=== PATIENT | male | born 1945 | race Caucasian/White ===

== ENCOUNTER 2017-01-07 20:09 | Inpatient (IN) ==
[2017-01-07] MEDS ORDERED: FUROSEMIDE 40 MG/4 ML VIAL IV STA (21:53)
[2017-01-07] MEDS ORDERED: MORPHINE 2 MG/1 ML SYRINGE IV STA (21:53)
[2017-01-07] MEDS ORDERED: ASPIRIN 325 MG TABLET PO STA (21:53)
[2017-01-07] MEDS ORDERED: NITROGLYCERIN 2% OINT 1 INCH/GM PACK TOP STA (21:53)
[2017-01-07] MEDS ORDERED: ONDANSETRON 4 MG/2 ML VIAL IV STA (21:53)
[2017-01-07 21:58] LABS: Basophils % 0.2 % (0.0-0.8); Eosinophils # 0.1 10*3/uL (0.0-0.87); Eosinophils % 0.6 % (0.00-10.9); Hematocrit 42.3 VOL% (42.0-52.0); Hemoglobin 13.8 GM/DL (14.0-18.0); Immature Granulocytes % 0.3 %; Immature Granulocytes Absolute 0.04 #; Lymphocytes # 2.3 10*3/uL (1.4-4.0); Lymphocytes % 18.9 % (21.2-54.2); Mean Corpuscular HGB Conc 32.6 GM/DL (32-36); Mean Corpuscular Hemoglobin 26 PG (27-34); Mean Platelet Volume 11.1 FL (9.6-12.0); Neutrophils # 8.7 10*3/uL (1.4-7.4); Platelet Count 236 T/CUMM (130-400); Red Blood Count 5.29 MC/CUMM (3.8-5.5); Red Cell Distribution Width 15.4 % (9.3-17.3); White Blood Count 12.1 T/CUMM (4-12)
[2017-01-07 22:03] LABS: INR 1.2; PT Patient Result 12.3 SECS
[2017-01-07 22:11] LABS: Albumin 3.5 G/DL (3.4-5.0); Bilirubin,Total 1.1 MG/DL (0.2-1.0); Calcium 9.1 MG/DL (8.5-10.1); Magnesium 2.2 MG/DL (1.8-2.4); Osmolality,Calculated 274.7 MOS/KG (273-304); Potassium 3.7 MMOL/L (3.5-5.1); Total Protein 7.5 G/DL (6.4-8.3)
[2017-01-07] MEDS ORDERED: MORPHINE 2 MG/1 ML SYRINGE ONE (22:14)
[2017-01-07] MEDS ORDERED: ASPIRIN 325 MG TABLET ONE (22:14)
[2017-01-07] MEDS ORDERED: FUROSEMIDE 40 MG/4 ML VIAL ONE (22:14)
[2017-01-07] MEDS ORDERED: NITROGLYCERIN 2% OINT 1 INCH/GM PACK TOP ONE (22:14)
[2017-01-07] MEDS ORDERED: ONDANSETRON 4 MG/2 ML VIAL ONE (22:15)
--- NOTE | 2017-01-07 22:22 | Emergency Department Note ---
Radhames Epperson Rolonda, am scribing for, and in the presence of, Cooper Green MD 22:09. Norma Epperson Charles R, MD, personally performed the services described in this documentation, ascribed by Kana Ricci in my presence, and it is both accurate and complete . Arrival - Arrival Chief Complaint: Chest Pain Stated Complaint: CHEST PAIN-SOB ED Nursing Triage Note: C/O Epigastric pain. Onset 1200 worsening around 1500. Pt was admitted at [facility] yesterday, but states that he signed out AMA due to Dr. Meadows being his doctor and not going to [facility]. +nausea +belching. pt reports that his cardiac enzymes went up during the admissions that is why he chose to come here to see Dr. Meadows Mode of Arrival: Ambulatory Limitations: No Limitations Source: Patient, Old Records Reviewed, RN Notes Reviewed Time Seen by Provider: 01/07/17 21:34 - History of Present Illness HPI Narrative: Pt is a 71 y/o male who presents to the ED for further evaluation of CP with an onset of yesterday. Pt has a PMHx of Defibrillator, DM, and AFib. Pt states that he was seen at [facility] where blood work was done showing that his enzyme levels were elevated. He states that he thought the CP was his acid reflux. Pt states that the CP occurs with and without exertion. Pt states that he had associated sxs of SOB, diaphoresis, and nausea. No other complaint/pain in ED. Onset (ago): hour(s) Consistency: constant Severity: mild, moderate Severity scale (1-10): 4 Allergies/Adverse Reactions: Allergies Allergy/AdvReac Type Severity Reaction Status Date / Time No Known Allergies Allergy Verified 09/25/14 11:21 Home Medications: Home Medications Medication Instructions Recorded Confirmed Type Aspirin [Ecotrin] 81 mg PO DAILY 05/28/15 05/28/15 History Carbidopa/Levodopa 25-100 [Sinemet 1 tablet PO DAILY 05/28/15 05/28/15 History 25-100] Dabigatran [Pradaxa] 150 mg PO BID 05/28/15 05/28/15 History Digoxin Tab [Lanoxin Tab] 0.25 mg PO DAILY@1300 05/28/15 05/28/15 History Esomeprazole Magnesium [Nexium] 40 mg PO DAILY 05/28/15 05/28/15 History Nebivolol [Bystolic] 20 mg PO DAILY 05/28/15 05/28/15 History PARoxetine HCl [Paroxetine HCl] 20 mg PO DAILY 05/28/15 05/28/15 History Potassium Chloride Cap/Tab [K Dur] 40 meq PO DAILY 05/28/15 05/28/15 History Quinapril [Accupril] 40 mg PO DAILY 05/28/15 05/28/15 History sitaGLIPtin [Januvia] 100 mg PO DAILY 05/28/15 05/28/15 History Furosemide Tab [Lasix Tab] 80 mg PO BID #60 05/31/15 05/28/15 Rx Spironolactone [Aldactone] 50 mg PO DAILY #30 tablet 05/31/15 Rx cloNIDine HCl [Clonidine HCl] 0.3 mg PO BID #60 tablet 05/31/15 Rx Review of System - Review of System 12 point system: reviewed and no additional remarkable complaints except as stated - Review of System Constitutional: Present: diaphoresis, weakness Respiratory: Present: respiratory distress (SOB). Absent: cough Cardiovascular: Present: chest pain Gastrointestinal: Present: nausea Genitourinary male: Absent: dysuria Musculoskeletal: Absent: arm pain Skin: Absent: rash Neurological: Absent: headache Psychiatric: Absent: anxiety Endocrine: Absent: cold intolerance Hematological/Lymphatic: Absent: easy bleeding Allergic/Immunologic: Absent: facial swelling Medical,Surgical,& Family Hx - Medical History Cardio: History of: Cardiac Dysrhythmia (AFIB), Hypertension, Pacemaker Endocrine: History of: Diabetes Mellitus (NIDDM) Gastrointestinal: History of: GERD - Family History Family History: Reports;: Family Cancer (FATHER- COLON CA), Family Diabetes ( MOTHER AND FATHER), Family Hypertension (GRANDMOTHER) - Social History Smoking Status: Never smoker Frequency of Alcohol Use: None Type of Drug Use: None Exam Vital Signs: Vital Signs Temperature 98.3 F 01/07/17 20:18 Pulse Rate 79 01/07/17 20:18 Respiratory Rate 20 01/07/17 20:18 Blood Pressure 144/90 01/07/17 20:18 O2 Sat by Pulse Oximetry 95 01/07/17 20:18 - General General appearance: alert, in no apparent distress - Head Head exam: Present: atraumatic, normocephalic - Eye Eye exam: Present: PERRL, EOMI - ENT ENT exam: Present: mucous membranes moist. Absent: mucous membranes dry - Neck Neck exam: Present: full ROM. Absent: tenderness - Chest Chest inspection: Present: symmetric chest wall rise. Absent: tenderness - Respiratory Respiratory exam: Present: rales (bilateral at base). Absent: normal lung sounds bilaterally - Cardiovascular Cardiovascular exam: Present: regular rate, normal rhythm, normal heart sounds, other (unstable angina). Absent: bradycardia - Abdominal Exam Abdominal exam: Present: soft, normal bowel sounds. Absent: tenderness - Extremities Exam Extremities exam: Present: full ROM, pedal edema (+2). Absent: tenderness - Back Exam Back exam: Present: full ROM. Absent: tenderness - Neurological Exam Neurological exam: Present: alert, oriented X3, CN II-XII intact - Psychiatric Psychiatric exam: Present: normal affect, normal mood - Skin Skin exam: Present: warm, dry, intact, normal color. Absent: rash Course - Consultations Consultation #1: Dr. Andino will admit patient Time: 22:55 Results - Labs CBC & BMP: 01/07/17 20:36 01/07/17 20:36 Lab Results: I have reviewed the patients labs Labs: Laboratory Tests 01/07/17 01/07/17 01/07/17 20:36 20:36 20:36 WBC 12.1 H RBC 5.29 Hgb 13.8 L Hct 42.3 MCV 80.0 L MCH 26 L Lymph % (Auto) 18.9 L Neut # (Auto) 8.7 H [place] # (Auto) 1.0 H INR 1.2 PT Patient/Control Mix 12.3 Sodium 138 Potassium 3.7 Chloride 102 Carbon Dioxide 31 BUN 10 GFR Calculation 122 Glucose 117 H Total Bilirubin 1.10 H AST 19 Troponin I Globulin 4.0 H Albumin/Globulin Ratio 0.8 L 01/07/17 20:36 WBC RBC Hgb Hct MCV MCH Lymph % (Auto) Neut # (Auto) [place] # (Auto) INR PT Patient/Control Mix Sodium Potassium Chloride Carbon Dioxide BUN GFR Calculation Glucose Total Bilirubin AST Troponin I 0.055 H Globulin Albumin/Globulin Ratio Disposition Clinical Impression: Chest pain, Cardiomyopathy, CHF (congestive heart failure), NYHA class III, Pacemaker, Atrial fibrillation Case discussed with: patient, patient's family Disposition: Still a Patient Condition: Stable Time of Disposition: 22:55
[2017-01-07] MEDS ORDERED: ENOXAPARIN 100 MG/ML SYRINGE SUBCUT STA (22:29)
[2017-01-07] MEDS ORDERED: ENOXAPARIN 120 MG/0.8 ML SYRINGE SUBCUT ONE (23:02)
[2017-01-07 23:36] LABS: Elliptocytes 2+; Platelet Estimate Normal
[2017-01-08] MEDS ORDERED: SODIUM CHLORIDE 0.9% 1,000 ML IV SCH (00:32)
[2017-01-08] MEDS ORDERED: POTASSIUM CHLORIDE 20 MEQ TABLET PO PRN (00:32)
[2017-01-08] MEDS ORDERED: ONDANSETRON 4 MG/2 ML VIAL IV PRN (00:32)
[2017-01-08] MEDS ORDERED: DEXTROSE 50% 25 GM/50 ML VIAL IV PRN (00:32)
[2017-01-08] MEDS ORDERED: MAGNESIUM SULF RIDER 2 GM in PREMIX 1 EACH IV PRN (00:32)
[2017-01-08] MEDS ORDERED: ALBUTEROL/IPRATROPIUM 3 ML NEB RESP TX PRN (00:32)
[2017-01-08] MEDS ORDERED: MAGNESIUM SULF RIDER 4 GM in PREMIX 1 EACH IV PRN (00:32)
[2017-01-08] MEDS ORDERED: MORPHINE 2 MG/1 ML SYRINGE IV PRN (00:32)
[2017-01-08] MEDS ORDERED: GLUCAGON 1 MG VIAL IM PRN (00:32)
[2017-01-08] MEDS: NITROGLYCERIN 2% OINT 1 INCH/GM PACK TOP SCH ×4 (00:37→17:41)
[2017-01-08 02:16] LABS: Basophils % 0.2 % (0.0-0.8); Eosinophils # 0.1 10*3/uL (0.0-0.87); Eosinophils % 1.4 % (0.00-10.9); Hematocrit 39.6 VOL% (42.0-52.0); Hemoglobin 13.2 GM/DL (14.0-18.0); Immature Granulocytes % 0.2 %; Immature Granulocytes Absolute 0.02 #; Lymphocytes # 2.1 10*3/uL (1.4-4.0); Lymphocytes % 21.2 % (21.2-54.2); Mean Corpuscular HGB Conc 33.3 GM/DL (32-36); Mean Corpuscular Hemoglobin 27 PG (27-34); Mean Corpuscular Volume 79.4 FL (87-102); Mean Platelet Volume 10.6 FL (9.6-12.0); Monocytes % 9.9 % (1.7-12.7); Neutrophils # 6.7 10*3/uL (1.4-7.4); Neutrophils % 67.1 % (38.7-73.9); Platelet Count 236 T/CUMM (130-400); Red Blood Count 4.99 MC/CUMM (3.8-5.5); Red Cell Distribution Width 15.5 % (9.3-17.3)
[2017-01-08 02:46] LABS: Calcium 8.8 MG/DL (8.5-10.1)
[2017-01-08 02:47] LABS: Albumin 3.3 G/DL (3.4-5.0); Magnesium 2.4 MG/DL (1.8-2.4); Osmolality,Calculated 277.5 MOS/KG (273-304); Potassium 3.5 MMOL/L (3.5-5.1); Risk Ratio 2.66; Total Protein 6.7 G/DL (6.4-8.3)
--- NOTE | 2017-01-08 07:35 | Order Completion Report ---
See report scanned to EMR
[2017-01-08] MEDS: INSULIN REGULAR 100 UNIT/ML SUBCUT SCH ×4 (08:27→21:19)
--- NOTE | 2017-01-08 08:31 | XRay Report ---
History: Chest pain Date: 01/07/2017 Study: Chest x-ray AP portable Comparison exam: June 01, 2015 There is continued cardiomegaly. The mediastinal contours are unchanged. The pulmonary vasculature is not engorged. The lungs and pleural spaces are clear. A left subclavian multiple lead pacemaker/defibrillator device is stable in appearance. Osseous structures are similar. Impression: No definite acute process. Stable cardiomegaly. No adverse interval change compared to the previous study PROCEDURE INTERPRETED AT [facility] DEPARTMENT OF RADIOLOGY Final Report Signed by: Dr. Ena Singh
--- NOTE | 2017-01-08 08:43 | Cardiology History & Physical ---
Assessment and Plan - Time spent with patient Time spent with patient: Greater than 30 minutes (1) Epigastric pain Status: Acute Assessment and plan: SEE PLAN OF CARE LISTED BELOW. Current Visit: Yes (2) Elevated troponin Status: Acute Assessment and plan: SEE PLAN OF CARE LISTED BELOW. Current Visit: Yes (3) AICD (automatic cardioverter/defibrillator) present Status: Chronic Assessment and plan: SEE PLAN OF CARE LISTED BELOW. Current Visit: No (4) GERD (gastroesophageal reflux disease) Status: Chronic Assessment and plan: SEE PLAN OF CARE LISTED BELOW. Current Visit: Yes (5) Hypertension Status: Chronic Assessment and plan: SEE PLAN OF CARE LISTED BELOW. Current Visit: Yes (6) Chronic a-fib Status: Chronic Assessment and plan: SEE PLAN OF CARE LISTED BELOW. Current Visit: Yes (7) Diabetes Status: Chronic Assessment and plan: SEE PLAN OF CARE LISTED BELOW. Current Visit: No Qualifiers: Diabetes mellitus type: type 2 Diabetes mellitus complication status: with skin complications Diabetes mellitus complication detail: with foot ulcer (8) Chronic anticoagulation Status: Chronic Assessment and plan: SEE PLAN OF CARE LISTED BELOW. Current Visit: Yes (9) Nonischemic cardiomyopathy Status: Chronic Assessment and plan: SEE PLAN OF CARE LISTED BELOW. Current Visit: Yes (10) Shortness of breath Status: Acute Assessment and plan: SEE PLAN OF CARE LISTED BELOW. Current Visit: Yes History of Present Illness Chief complaint: Epigastric pain, shortness of breath History of present illness: PLUMBER HELPER: Dr. Meadows Mr. Corbett is a 71 year old male without known history of coronary artery disease, routinely followed by Dr. Meadows. Cardiac risk factors include: Diabetes, hypertension, advanced age, obesity and sedentary lifestyle. Lifetime non-smoker. No significant family history of CAD. Past medical history includes: Chronic atrial fibrillation (chronically anticoagulated with Pradaxa), nonischemic cardiomyopathy, obstructive sleep apnea and GERD. Patient 's most recent heart catheterization was performed March 2008. 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 EF at that time was 35-40%. Echocardiogram performed July 2016 revealed LVEF 30%. Mild to moderate LVH. Patient was last seen in the cardiology clinic per Dr. Cassandra Meadows July 2016. At that time, he was doing well without cardiovascular complaints. Patient presented to [facility] January 07, 2017 with complaints of epigastric pain. He presented to [facility] yesterday for further evaluation. At that facility, his troponin was noted to be slightly bumped per his report. He is unaware of exactly what this number was. I have requested these records. At that point, he told them that his wireless development manager was at [facility] and he wanted to be worked up here. He presented to our facility January 07, 2017 with the same complaints of epigastric pain. He reports that on Wednesday he felt bad all day. He was weak and short of breath. He then developed epigastric pain approximately 2 hours after eating lunch yesterday. He denies any associated chest pain, heaviness or tightness. Confirms shortness of breath and nausea. Denies diaphoresis. Denies heart racing/ palpitations. Confirms orthopnea over the last several nights. No radiation. He reports that his epigastric pain continued and lasted several hours. At that point, he felt that he should be further evaluated in the emergency department. At [facility], he reports that he received IV Protonix which then relieved his pain. It has not recurred since that time. He reports that he has been very sedentary over the last several months as he has had surgery recently and has not been able to do much. He denies any exertional chest pain. Reports that his breathing has been short at times on exertion. He has felt weak and fatigued. He has associated his symptomology with reflux. He reports that he has just switched his medications around. He has quit taken Nexium and switch to Prilosec. Denies any dark tarry stools or bright red blood per rectum. He reports that he does not think that his reflux is well controlled with the Prilosec. Patient has been admitted under cardiology's service. Housed on the telemetry unit. Patient seen and examined on the telemetry unit. He is currently without complaints of epigastric pain, chest pain, heaviness or tightness. Denies shortness of breath. Upon entering the room, patient was lying flat without any specific complaints or orthopnea. He reports that he has diuresed significantly since yesterday. As he was also diuresed at [place]. We will monitor patient's renal function closely and observe for overdiuresis. Trivial troponin. No overt rise or fall. Flat in nature. EKG nondiagnostic, reveals ventricular pacing. Previous catheterization in 2007 revealed nonobstructive CAD. No significant disease was noted until the very distal portion of the LAD. Mild disease in the very terminal portion, LAD at that point is less than 1 mm. Given the fact that patient's pain was relieved with PPI, suspicion of ACS is low. I discussed this case with Dr. Ornelas and we will interrogate the patient's AICD device as well as repeat echocardiogram. If this looks ok, patient may be eligible for discharge later this afternoon with close follow-up with his primary wireless development manager. IMPRESSION AND PLAN: 1. EPIGASTRIC PAIN - Relieved with Protonix. This will be continued. Suspect GERD. Historically, this is been well controlled. However, patient just recently switched from Nexium to Prilosec and reports worsening epigastric pain and belching after meals. 2. SHORTNESS OF BREATH - BNP slightly elevated at 541. Suspect acute on chronic CHF secondary to systolic dysfunction. We will diurese patient with IV Lasix. Will monitor renal function closely. Obtain echocardiogram. Monitor strict i's and O's and daily weights. 3. NONISCHEMIC CARDIOMYOPATHY - Deemed nonischemic cardiomyopathy 2007 per [facility]. EF 30% July 2016. Will obtain repeat echocardiogram to reassess EF. Continue beta-blockade, ISAAC inhibitor, diuretics and digoxin. Further recommendations to follow after echocardiogram has been reviewed. 4. HYPERTENSION - Well controlled. Will continue patient's home medication regimen and monitor blood pressure, adjust accordingly. 5. TRIVIAL TROPONIN - Trivial troponin. No overt rise or fall. Flat in nature. EKG nondiagnostic, reveals ventricular pacing. Without complaints of chest pain. Only epigastric pain. Previous catheterization in 2007 revealed nonobstructive CAD. No significant disease was noted into the very distal portion of the LAD. Mild disease in the very terminal portion, LAD at that point is less than 1 mm. Given the fact that patient's pain was relieved with PPI, suspicion of ACS is low. We will interrogate the patient's AICD device as well as repeat echocardiogram. If this looks ok patient may be eligible for discharge later this afternoon with close follow-up with his primary wireless development manager. 6. CHRONIC ATRIAL FIBRILLATION - Currently a paced rhythm. Continue beta- blockade and digoxin. Continue Pradaxa. 7. CHRONIC ANTICOAGULATION - Chronically anticoagulated with Pradaxa for chronic atrial fibrillation. Continue Pradaxa. No evidence of overt bleeding. 8. GERD - Continue PPI. 9. STATUS POST AICD - Chronic, stable. 10. DIABETES - Sliding scale insulin. Accu-Cheks before meals and at bedtime. Home Medications Medication Instructions Recorded Confirmed Type Aspirin [Ecotrin] 81 mg PO DAILY 05/28/15 05/28/15 History Carbidopa/Levodopa 25-100 [Sinemet 1 tablet PO DAILY 05/28/15 05/28/15 History 25-100] Dabigatran [Pradaxa] 150 mg PO BID 05/28/15 05/28/15 History Digoxin Tab [Lanoxin Tab] 0.25 mg PO DAILY@1300 05/28/15 05/28/15 History Esomeprazole Magnesium [Nexium] 40 mg PO DAILY 05/28/15 05/28/15 History Nebivolol [Bystolic] 20 mg PO DAILY 05/28/15 05/28/15 History PARoxetine HCl [Paroxetine HCl] 20 mg PO DAILY 05/28/15 05/28/15 History Potassium Chloride Cap/Tab [K Dur] 40 meq PO DAILY 05/28/15 05/28/15 History Quinapril [Accupril] 40 mg PO DAILY 05/28/15 05/28/15 History sitaGLIPtin [Januvia] 100 mg PO DAILY 05/28/15 05/28/15 History Furosemide Tab [Lasix Tab] 80 mg PO BID #60 05/31/15 05/28/15 Rx Spironolactone [Aldactone] 50 mg PO DAILY #30 tablet 05/31/15 Rx cloNIDine HCl [Clonidine HCl] 0.3 mg PO BID #60 tablet 05/31/15 Rx Allergies Allergy/AdvReac Type Severity Reaction Status Date / Time Terazosin [From Hytrin] Allergy Unknown Verified 01/08/17 02:21 - Constitutional Constitutional: Present: as per HPI, fatigue, headache(s), lethargy, malaise, weakness. Absent: chills, fever(s), frequent falls, weight gain, weight loss - Cardiovascular Cardiovascular: Present: as per HPI, diaphoresis, dyspnea, dyspnea on exertion, orthopnea. Absent: chest pain at rest, chest pain with activity, claudication, edema, radiating jaw, neck or arm pain, lightheadedness, palpitations, PND - Respiratory Respiratory: Present: as per HPI, dyspnea, dyspnea on exertion. Absent: cough, hemoptysis, wheezing, snoring, pain on inspiration, change in phlegm color - Gastrointestinal Gastrointestinal: Present: as per HPI, abdominal pain, dyspepsia, heartburn, nausea. Absent: change in bowel habits, coffee ground emesis, hematemesis, hematochezia, melena, vomiting - Neurological Neurological: Present: as per HPI. Absent: abnormal gait, abnormal speech, behavioral changes, dizziness, frequent falls, syncope - Psychiatric Psychiatric: Present: as per HPI. Absent: anxiety, panic attacks - Hematologic/Lymphatic Hematologic/Lymphatic: Present: as per HPI. Absent: easy bleeding, easy bruising Medical,Surgical,& Family Hx - Medical History Cardio: History of: Cardiac Dysrhythmia (AFIB), CHF, Hypertension, Pacemaker, Cardiovascular Problems (Nonischemic cardiomyopathy) Endocrine: History of: Diabetes Mellitus (NIDDM) Gastrointestinal: History of: GERD Musculoskeletal: History of: Back/Neck Problems - Surgical History Cardiac Surgeries: Sugical HX of: Cardiac Catheterization Thoracic Surgeries: Surgical HX of;: Lobectomy - Family History Family History: Reports;: Family Cancer (FATHER- COLON CA), Family Diabetes ( MOTHER AND FATHER), Family Hypertension (GRANDMOTHER) - Social History Smoking Status: Never smoker Frequency of Alcohol Use: None Type of Drug Use: None Marital Status: Lives With:: Spouse Functional capacity: independent ambulation Cardiology Physical Exam - Constitutional Vitals: Vital Signs Temp Pulse Resp BP Pulse Ox 97.3 F L 78 18 141/80 90 L 01/08/17 04:00 01/08/17 07:55 01/08/17 05:56 01/08/17 04:00 01/08/17 04:00 Intake and Output 01/07/17 01/08/17 01/08/17 22:59 06:59 14:59 Output Total 250 / 250 Balance -250 / -250 Output: Urine 250 / 250 Other: Voiding Method Urinal Weight 320 lb 334 lb Exam: General: Appears well with no apparent distress. Pleasant and cooperative. Appears comfortable. HEENT: PERRL, normocephalic, atraumatic. Mucous membranes moist. No jaundice noted. Conjunctiva moist and clear, sclerae anicteric Neck: No JVD/HJR, no thyromegaly or lymphadenopathy noted. No carotid bruit appreciated Cardiac: S1 and S2. No murmur rub or gallop. Lungs: Clear to auscultation without accessory muscle use to assist the respiratory pattern. Not requiring oxygen. Abdomen: Soft, bowel sounds normoactive. Nontender and nondistended. No abdominal bruit or thrill noted. No masses noted. Extremities: No clubbing, cyanosis noted. No edema noted. Upper extremity pulses 2+. Lower extremity pulses 2+. Capillary refill less than 3 seconds. Skin: No unusual lesions or rashes. No skin breakdown appreciated. Neuro: Awake, alert and oriented 3. Moves all extremities well without hemiparesis or paralysis. No essential tremor is appreciated. Result/EKG - Labs CBC & BMP: 01/08/17 02:00 01/08/17 02:03 Lab Results: I have reviewed the past 24 hour labs Labs: Laboratory Results - last 24 hr 01/07/17 01/07/17 01/07/17 20:36 20:36 20:36 WBC RBC Hgb Hct MCV MCH MCHC RDW Plt Count MPV Neut % (Auto) Lymph % (Auto) [place] % (Auto) Eos % (Auto) Baso % (Auto) Neut # (Auto) Lymph # (Auto) [place] # (Auto) Eos # (Auto) Baso # (Auto) Immature Gran % Nucleated RBC % Immature Gran # Nucleated RBCs # Platelet Estimate Immature Plt Fraction Anisocytosis Elliptocytes INR 1.2 PT Patient/Control Mix 12.3 Sodium 138 Potassium 3.7 Chloride 102 Carbon Dioxide 31 Anion Gap 8.7 BUN 10 Creatinine 1.00 GFR Calculation 122 BUN/Creatinine Ratio 10.00 Glucose 117 H Calculated Osmolality 274.7 Calcium 9.1 Magnesium 2.2 Total Bilirubin 1.10 H AST 19 ALT 19 Alkaline Phosphatase 97 Troponin I B-Natriuretic Peptide 400 H Total Protein 7.5 Albumin 3.5 Globulin 4.0 H Albumin/Globulin Ratio 0.8 L Triglycerides Cholesterol LDL Cholesterol VLDL Cholesterol HDL Cholesterol Heart Disease Risk Ratio Lipase 102.0 Digoxin 01/07/17 01/07/17 01/07/17 20:36 20:36 21:36 WBC 12.1 H RBC 5.29 Hgb 13.8 L Hct 42.3 MCV 80.0 L MCH 26 L MCHC 32.6 RDW 15.4 Plt Count 236 MPV 11.1 Neut % (Auto) 72.0 Lymph % (Auto) 18.9 L [place] % (Auto) 8.0 Eos % (Auto) 0.6 Baso % (Auto) 0.2 Neut # (Auto) 8.7 H Lymph # (Auto) 2.3 [place] # (Auto) 1.0 H Eos # (Auto) 0.1 Baso # (Auto) 0.0 Immature Gran % 0.3 Nucleated RBC % 0.0 Immature Gran # 0.04 Nucleated RBCs # 0.00 Platelet Estimate Normal Immature Plt Fraction 0.0 Anisocytosis Elliptocytes 2+ INR PT Patient/Control Mix Sodium Potassium Chloride Carbon Dioxide Anion Gap BUN Creatinine GFR Calculation BUN/Creatinine Ratio Glucose Calculated Osmolality Calcium Magnesium Total Bilirubin AST ALT Alkaline Phosphatase Troponin I 0.055 H B-Natriuretic Peptide Total Protein Albumin Globulin Albumin/Globulin Ratio Triglycerides Cholesterol LDL Cholesterol VLDL Cholesterol HDL Cholesterol Heart Disease Risk Ratio Lipase Digoxin 0.40 L 01/08/17 01/08/17 01/08/17 02:00 02:03 02:03 WBC 10.0 RBC 4.99 Hgb 13.2 L Hct 39.6 L MCV 79.4 L MCH 27 MCHC 33.3 RDW 15.5 Plt Count 236 MPV 10.6 Neut % (Auto) 67.1 Lymph % (Auto) 21.2 [place] % (Auto) 9.9 Eos % (Auto) 1.4 Baso % (Auto) 0.2 Neut # (Auto) 6.7 Lymph # (Auto) 2.1 [place] # (Auto) 1.0 H Eos # (Auto) 0.1 Baso # (Auto) 0.0 Immature Gran % 0.2 Nucleated RBC % 0.0 Immature Gran # 0.02 Nucleated RBCs # 0.00 Platelet Estimate Immature Plt Fraction 0.0 Anisocytosis Elliptocytes INR PT Patient/Control Mix Sodium 139 Potassium 3.5 Chloride 103 Carbon Dioxide 31 Anion Gap 8.5 BUN 12 Creatinine 1.00 GFR Calculation 124 BUN/Creatinine Ratio 12.00 Glucose 122 H Calculated Osmolality 277.5 Calcium 8.8 Magnesium Total Bilirubin 1.00 AST 15 ALT 19 Alkaline Phosphatase 93 Troponin I 0.051 H B-Natriuretic Peptide Total Protein 6.7 Albumin 3.3 L Globulin 3.4 Albumin/Globulin Ratio 0.9 L Triglycerides Cholesterol LDL Cholesterol VLDL Cholesterol HDL Cholesterol Heart Disease Risk Ratio Lipase Digoxin 01/08/17 01/08/17 01/08/17 02:03 02:03 03:49 WBC RBC Hgb Hct MCV MCH MCHC RDW Plt Count MPV Neut % (Auto) Lymph % (Auto) [place] % (Auto) Eos % (Auto) Baso % (Auto) Neut # (Auto) Lymph # (Auto) [place] # (Auto) Eos # (Auto) Baso # (Auto) Immature Gran % Nucleated RBC % Immature Gran # Nucleated RBCs # Platelet Estimate Immature Plt Fraction Anisocytosis Elliptocytes INR PT Patient/Control Mix Sodium Potassium Chloride Carbon Dioxide Anion Gap BUN Creatinine GFR Calculation BUN/Creatinine Ratio Glucose Calculated Osmolality Calcium Magnesium 2.4 Total Bilirubin AST ALT Alkaline Phosphatase Troponin I 0.046 H B-Natriuretic Peptide 541 H Total Protein Albumin Globulin Albumin/Globulin Ratio Triglycerides 110 Cholesterol 101 LDL Cholesterol 55.0 VLDL Cholesterol 22.0 HDL Cholesterol 38 L Heart Disease Risk Ratio 2.66 Lipase Digoxin
[2017-01-08] MEDS ORDERED: INFLUENZA VIRUS VACCINE 0.5 ML SYRINGE IM ONE (09:00)
[2017-01-08] MEDS: FUROSEMIDE 20 MG/2 ML VIAL IV SCH ×2 (09:29→16:39)
--- NOTE | 2017-01-08 09:34 | XRay Report ---
History: Shortness of breath Date: 01/08/2017 Study: Chest x-ray PA and lateral Comparison exam: 01/07/2017 There is stable mild cardiomegaly. The mediastinal contours are unchanged. The pulmonary vasculature is not engorged. There is no pleural effusion. The lungs are generally clear. A left subclavian multiple lead pacemaker/fibular device is stable. The osseous structures are similar. Impression: No adverse interval change compared to the previous study. Stable cardiomegaly PROCEDURE INTERPRETED AT [facility] DEPARTMENT OF RADIOLOGY Final Report Signed by: Dr. Ena Singh
[2017-01-08] MEDS: sitaGLIPtin 100 MG TABLET PO SCH (09:44)
[2017-01-08] MEDS: QUINAPRIL 20 MG TABLET PO SCH (09:44)
[2017-01-08] MEDS: NEBIVOLOL 10 MG TABLET PO SCH (09:44)
[2017-01-08] MEDS: PANTOPRAZOLE 40 MG TABLET PO SCH (09:45)
[2017-01-08] MEDS: ASPIRIN EC 81 MG TABLET PO SCH (09:45)
[2017-01-08] MEDS: DABIGATRAN 150 MG CAPSULE PO SCH ×2 (09:46→21:17)
--- NOTE | 2017-01-08 11:55 | Order Completion Report ---
See report scanned to EMR
--- NOTE | 2017-01-08 11:56 | Order Completion Report ---
See report scanned to EMR
[2017-01-08] MEDS ORDERED: DIGOXIN 0.25 MG TABLET PO SCH ×2 (13:00→17:22)
--- NOTE | 2017-01-08 17:22 | Order Completion Report ---
See report scanned to EMR
[2017-01-08] MEDS ORDERED: FUROSEMIDE 20 MG/2 ML VIAL IV SCH (17:23)
[2017-01-08] MEDS ORDERED: ALUMINUM/MAGNES/SIMETH MAX STR 30 ML UDCUP PO PRN (17:24)
[2017-01-08] MEDS ORDERED: FUROSEMIDE 80 MG TABLET PO SCH (21:00)
[2017-01-09] MEDS: NITROGLYCERIN 2% OINT 1 INCH/GM PACK TOP SCH ×2 (01:45→06:01)
[2017-01-09 04:38] LABS: Basophils % 0.3 % (0.0-0.8); Eosinophils # 0.2 10*3/uL (0.0-0.87); Eosinophils % 2.4 % (0.00-10.9); Hematocrit 39.6 VOL% (42.0-52.0); Hemoglobin 12.9 GM/DL (14.0-18.0); Immature Granulocytes % 0.3 %; Immature Granulocytes Absolute 0.02 #; Lymphocytes # 1.8 10*3/uL (1.4-4.0); Lymphocytes % 22.4 % (21.2-54.2); Mean Corpuscular HGB Conc 32.6 GM/DL (32-36); Mean Corpuscular Hemoglobin 26 PG (27-34); Mean Corpuscular Volume 79.5 FL (87-102); Mean Platelet Volume 11.7 FL (9.6-12.0); Monocytes # 0.9 10*3/uL (0.11-0.8); Monocytes % 11.5 % (1.7-12.7); Neutrophils % 63.1 % (38.7-73.9); Platelet Count 230 T/CUMM (130-400); Red Blood Count 4.98 MC/CUMM (3.8-5.5); Red Cell Distribution Width 15.3 % (9.3-17.3); White Blood Count 7.8 T/CUMM (4-12)
[2017-01-09 05:12] LABS: Calcium 9.1 MG/DL (8.5-10.1); Magnesium 2.3 MG/DL (1.8-2.4); Osmolality,Calculated 278.5 MOS/KG (273-304); Potassium 3.5 MMOL/L (3.5-5.1)
[2017-01-09 07:54] VITALS: BP 158/81
[2017-01-09] MEDS: INSULIN REGULAR 100 UNIT/ML SUBCUT SCH (08:56)
[2017-01-09] MEDS ORDERED: SPIRONOLACTONE 50 MG TABLET PO SCH (09:00)
[2017-01-09] MEDS ORDERED: PARoxetine 20 MG TABLET PO SCH (09:00)
[2017-01-09] MEDS ORDERED: CARBIDOPA/LEVODOPA 25-100 MG TABLET PO SCH (09:00)
[2017-01-09] MEDS ORDERED: POTASSIUM CHLORIDE 20 MEQ TABLET PO SCH (09:00)
[2017-01-09] MEDS ORDERED: NON-FORMULARY MEDICATION (Esomeprazole Magnesium [Nexium] 40 MG) PO SCH (09:00)
[2017-01-09] MEDS: QUINAPRIL 20 MG TABLET PO SCH (09:16)
[2017-01-09] MEDS: NEBIVOLOL 10 MG TABLET PO SCH (09:16)
[2017-01-09] MEDS: ASPIRIN EC 81 MG TABLET PO SCH (09:16)
[2017-01-09] MEDS: sitaGLIPtin 100 MG TABLET PO SCH (09:17)
[2017-01-09] MEDS: DABIGATRAN 150 MG CAPSULE PO SCH (09:17)
[2017-01-09] MEDS: PANTOPRAZOLE 40 MG TABLET PO SCH (09:17)
--- NOTE | 2017-01-09 09:51 | Discharge Summary ---
Hospital Course - Hospital Course Hospital Course: Mr. Corbett is a 71 year old male without known history of coronary artery disease, routinely followed by Dr. Meadows. Cardiac risk factors include: Diabetes, hypertension, advanced age, obesity and sedentary lifestyle. Lifetime non-smoker. No significant family history of CAD. Past medical history includes: Chronic atrial fibrillation (chronically anticoagulated with Pradaxa), nonischemic cardiomyopathy, obstructive sleep apnea and GERD. Patient 's most recent heart catheterization was performed March 2008. 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 EF at that time was 35-40%. Echocardiogram performed July 2016 revealed LVEF 30%. Mild to moderate LVH. Patient was last seen in the cardiology clinic per Dr. Cassandra Meadows July 2016. At that time, he was doing well without cardiovascular complaints. Patient presented to [facility] January 07, 2017 with complaints of epigastric pain. He presented to [facility] yesterday for further evaluation. At that facility, his troponin was noted to be slightly bumped per his report. He is unaware of exactly what this number was. I have requested these records. 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 He presented to our facility January 07, 2017 with the same complaints of epigastric pain. He reports that on Wednesday he felt bad all day. He was weak and short of breath. He then developed epigastric pain approximately 2 hours after eating lunch yesterday. He denies any associated chest pain, heaviness or tightness. Confirms shortness of breath and nausea. Denies diaphoresis. Denies heart racing/ palpitations. Confirms orthopnea over the last several nights. No radiation. He reports that his epigastric pain continued and lasted several hours. At that point, he felt that he should be further evaluated in the emergency department. At [facility], he reports that he received IV Protonix which then relieved his pain. It has not recurred since that time. He reports that he has been very sedentary over the last several months as he has had surgery recently and has not been able to do much. He denies any exertional chest pain. Reports that his breathing has been short at times on exertion. He has felt weak and fatigued. He has associated his symptomology with reflux. He reports that he has just switched his medications around. He has quit taken Nexium and switch to Prilosec. Denies any dark tarry stools or bright red blood per rectum. He reports that he does not think that his reflux is well controlled with the Prilosec. Patient has been admitted under cardiology's service. Housed on the telemetry unit. Echo showed ejection fraction 25%, no pericardial effusion, mild pulmonary hypertension. BNP was elevated. He did not have significant lower extremity edema or pulmonary congestion. EKG showed ineffective LV capture. The LEAN SIX SIGMA BLACK BELT was interrogated and adjusted, effective LV capture was obtained. In the past, this was limited by phrenic nerve stimulation, which was not apparent during his hospital stay. He was diuresed with IV Lasix. Acid suppressive treatment was also pursued, as his symptoms are suggestive of GI origin. Digoxin was subtherapeutic, reduced dose to 0.5 mg daily. He is a large man, with preserved renal function. We continued anticoagulation with Pradaxa, no bleeding issues. There was no evidence of ACS. He became symptom-free. He will be discharged home, follow-up with Dr. Meadows in 2 weeks. Recheck BMP/magnesium. Discussed if he feels phrenic stim, to contact the pacemaker clinic and we continue to adjust. We are pacing from proximal pole Diagnosis - Discharge Diagnosis (1) CHF (congestive heart failure), NYHA class III Status: Acute (2) Atrial fibrillation Status: Chronic (3) Diabetes Status: Chronic Discharge Plan - Discharge Data Disposition: Disch To Home/Self Care Condition at Discharge: Stable Discharge Diet: advance to your usual diet Activity: resume usual activities as tolerated Hygiene: no restrictions Weight Bearing at Discharge: full weight bearing Driving: no restrictions Contact your physician if you experience:: fever over 101, Difficulty voiding, Redness or swelling, Nausea/Vomiting, Shortness of breath, Bleeding, pain uncontrolled by pain medications - Discharge Medications New Digoxin Tab [Lanoxin Tab] 0.5 mg PO DAILY@1300 #30 tablet Continue Quinapril [Accupril] 40 mg PO DAILY Dabigatran [Pradaxa] 150 mg PO BID Potassium Chloride Cap/Tab [K Dur] 40 meq PO DAILY PARoxetine HCl [Paroxetine HCl] 20 mg PO DAILY sitaGLIPtin [Januvia] 100 mg PO DAILY Esomeprazole Magnesium [Nexium] 40 mg PO DAILY Carbidopa/Levodopa 25-100 [Sinemet 25-100] 1 tablet PO DAILY Nebivolol [Bystolic] 20 mg PO DAILY Aspirin [Ecotrin] 81 mg PO DAILY Spironolactone [Aldactone] 50 mg PO DAILY #30 tablet cloNIDine HCl [Clonidine HCl] 0.3 mg PO BID #60 tablet Furosemide Tab [Lasix Tab] 80 mg PO BID #60 Discontinued Digoxin Tab [Lanoxin Tab] 0.25 mg PO DAILY@1300 - Follow Up or Referral Follow Up: Cassandra Meadows DO [Physician] - 2 Weeks (Check BMP/Mg) - Forms/Instructions Exam - Constitutional Vitals: Period Temp Pulse Resp BP Sys/Dela Cruz Pulse Ox Last 24 Hr 97.2 F-98.6 F 69-89 16-20 128-165/56-84 90-95 General appearance: normal weight, over weight - Head Head exam: Present: normal inspection. Absent: contusion - Eye Eye exam: Absent: periorbital swelling, scleral icterus Pupils: Absent: dilated - ENT ENT exam: Present: normal external ear exam - Neck Neck exam: Present: normal inspection - Respiratory Respiratory exam: Present: clear to auscultation bilaterally. Absent: chest wall tenderness - Cardiovascular Cardiovascular exam: Present: regular rate and rhythm, systolic murmur. Absent : JVD - GI/Abdominal GI/Abdominal exam: Present: normal bowel sounds. Absent: distended - Extremities Exam Extremities exam: Present: normal inspection, normal capillary refill. Absent: edema - Back Exam Back exam: Present: normal inspection - Neurological Exam Neurological exam: Present: alert, oriented X3 - Psychiatric Psychiatric exam: Present: normal affect, normal mood - Skin Skin exam: Present: normal color, warm. Absent: cyanosis Discharge Results Procedures and tests throughout hospitalization: Pending Orders 01/10/17 04:00 BMP w/ Mg [Basic Metabolic Panel w/Mg] IN AM CBC [Comp Blood Count Auto Diff] IN AM 01/11/17 04:00 BMP w/ Mg [Basic Metabolic Panel w/Mg] IN AM CBC [Comp Blood Count Auto Diff] IN AM Labs on day of discharge: Labs from last 24 hours 01/09/17 01/09/17 01/09/17 07:32 05:39 03:10 WBC 7.8 RBC 4.98 Hgb 12.9 L Hct 39.6 L MCV 79.5 L MCH 26 L MCHC 32.6 RDW 15.3 Plt Count 230 MPV 11.7 Neut % (Auto) 63.1 Lymph % (Auto) 22.4 Moca % (Auto) 11.5 Eos % (Auto) 2.4 Baso % (Auto) 0.3 Neut # (Auto) 5.0 Lymph # (Auto) 1.8 Moca # (Auto) 0.9 H Eos # (Auto) 0.2 Baso # (Auto) 0.0 Immature Gran % 0.3 Nucleated RBC % 0.0 Immature Gran # 0.02 Nucleated RBCs # 0.00 Immature Plt Fraction 0.0 D-Dimer, Quantitative Sodium Potassium Chloride Carbon Dioxide Anion Gap BUN Creatinine GFR Calculation BUN/Creatinine Ratio Glucose POC Glucose 112 H 113 H Calculated Osmolality Calcium Magnesium 01/09/17 01/09/17 01/08/17 03:09 01:48 18:09 WBC RBC Hgb Hct MCV MCH MCHC RDW Plt Count MPV Neut % (Auto) Lymph % (Auto) Moca % (Auto) Eos % (Auto) Baso % (Auto) Neut # (Auto) Lymph # (Auto) Moca # (Auto) Eos # (Auto) Baso # (Auto) Immature Gran % Nucleated RBC % Immature Gran # Nucleated RBCs # Immature Plt Fraction D-Dimer, Quantitative Sodium 139 Potassium 3.5 Chloride 102 Carbon Dioxide 29 Anion Gap 11.5 BUN 15 Creatinine 0.90 GFR Calculation 141 BUN/Creatinine Ratio 16.00 Glucose 109 H POC Glucose 130 H 119 H Calculated Osmolality 278.5 Calcium 9.1 Magnesium 2.3 01/08/17 01/08/17 01/08/17 14:47 11:33 10:03 WBC RBC Hgb Hct MCV MCH MCHC RDW Plt Count MPV Neut % (Auto) Lymph % (Auto) Moca % (Auto) Eos % (Auto) Baso % (Auto) Neut # (Auto) Lymph # (Auto) Moca # (Auto) Eos # (Auto) Baso # (Auto) Immature Gran % Nucleated RBC % Immature Gran # Nucleated RBCs # Immature Plt Fraction D-Dimer, Quantitative <= 0.5 Sodium Potassium Chloride Carbon Dioxide Anion Gap BUN Creatinine GFR Calculation BUN/Creatinine Ratio Glucose POC Glucose 138 H 175 H Calculated Osmolality Calcium Magnesium - Imaging and Cardiology Cardiology Procedure: image reviewed by me, report reviewed by me DS: Provider Date of admission: 10/05/17 22:56 Primary care physician: Brian Reese DO Attending physician on admission: Dhara Andino, Discharging clinician: Sanju Ornelas MD Expected date of discharge: 01/09/17
[2017-01-09] MEDS ORDERED: FUROSEMIDE 80 MG TABLET PO SCH (16:00)
--- NOTE | 2017-01-11 15:45 | Physician Query Form ---
CLICK EDIT DOCUMENT TO SELECT QUERY ANSWER --> OK --> SIGN Madelyn Moon RN Clinical Manager Law W) [phone] (f) [phone] [email or web address] PROVIDERS: Make your selection(s) from the choices in EACH section by typing an "x" and enter comments in the comment section. Please use your independent medical judgment in providing your response. This request does not imply that any particular answer is desired or expected. CLINICAL INDICATORS: (Providers should not edit this section) Based on documentation of "CHF" "Short of breath" Echo shows EF of 25% with grade 3 diastolic dysfunction. BNP of 541. Treated with IV Lasix. Please provide further specificity regarding CHF. ACUITY: ( ) Acute ( ) Chronic (x) Acute on Chronic ( ) Clinically unable to determine TYPE: ( ) Systolic (HFrEF - heart failure with reduced systolic function/EF) ( ) Diastolic (HFpEF - heart failure with preserved systolic function/EF) (x) Combined Systolic/Diastolic ( ) Other, please specify: ( ) Clinically unable to determine ( ) Past Medical History of Systolic CHF ( ) Past Medical History of Diastolic CHF ( ) Clinically unable to determine COMMENTS: PLEASE ALSO DOCUMENT RESPONSE IN PROGRESS NOTES AND/OR DISCHARGE SUMMARY Use of terms such as suspected, likely, or probable (associated with a specific diagnosis that is being evaluated, monitored, or treated as if it exists) are acceptable and can be restated in the discharge summary if not ruled out. MTDD
== END 2017-01-09 12:57 | disposition home or self-care (01) | DRG 391 ==
LOC: N.ED 20:09 → N.TELEN 22:56
PROVIDERS: ADMIT Internal Medicine Cardiovascular Disease; ATTEND Internal Medicine Cardiovascular Disease